=== PATIENT | female | born 1940 | race African-American/Black ===

== ENCOUNTER 2020-04-06 20:58 | Emergency (ER) | payer OTHER ==
[~2020-04-06] VITALS: Ht 165.1 cm; Wt 72.7 kg
[2020-04-06] MEDS ORDERED: FAMOTIDINE 10 MG/ML 2 ML VIAL IVP ONE (22:15)
[2020-04-06] MEDS ORDERED: SODIUM CHLORIDE 0.9% 1,000 ML IV ONE (22:15)
[2020-04-06] MEDS ORDERED: MORPHINE SULFATE 2 MG/ML SYRINGE IVP ONE (22:15)
[2020-04-06] MEDS ORDERED: ONDANSETRON HCL 4 MG TABLET PO ONE (22:15)
[2020-04-06] MEDS ORDERED: SODIUM CHLORIDE 0.9% 100 ML ONE (23:12)
[2020-04-06] MEDS ORDERED: IOVERSOL 350 MG/ML 100 ML VIAL ONE (23:12)
[2020-04-06 23:14] LABS: BASOPHILS % (AUTO) 0.1 % (0.0-2.0); EOSINOPHILS % (AUTO) 0 % (1.0-6.0); HEMATOCRIT 35.3 % (36-46); HEMOGLOBIN 11.5 g/dL (12.0-16.0); LYMPHOCYTES # (AUTO) 0.6 K/uL (1.0-4.8); LYMPHOCYTES % (AUTO) 6.5 % (22.0-44.0); MEAN CORPUSCULAR HEMOGLOBIN 27.8 pg (26.0-34.0); MEAN CORPUSCULAR HGB CONC 32.7 G/dL (31.0-37.0); MEAN CORPUSCULAR VOLUME 85 fL (80-100); MONOCYTES # (AUTO) 0.9 K/uL (0.1-1.0); MONOCYTES % (AUTO) 9.4 % (2.0-9.0); NEUTROPHILS # (AUTO) 7.8 K/uL (1.8-7.7); PLATELET COUNT (AUTO) 180 K/uL (150-450); RED BLOOD CELL COUNT(AUTO) 4.16 MIL/uL (4.00-5.20); RED CELL DISTRIBUTION WIDTH 14.6 % (11.5-14.5)
[2020-04-06 23:24] LABS: ANION GAP 11 mmol/L (8-16); CALCIUM, TOTAL 7.7 mg/dL (8.8-10.5); CARBON DIOXIDE 21 mmol/L (22-29); CHLORIDE 104 mmol/L (98-107); CREATININE 0.72 mg/dL (0.60-1.30); GLOMERULAR FILTR. RATE CALC > 60 mL/min (>60); GLUCOSE,RANDOM 124 mg/dL (70-110); POTASSIUM 3.4 mmol/L (3.5-5.1); SODIUM SERUM 136 mmol/L (136-145); UREA NITROGEN, BLOOD 12 mg/dL (7-18)
[2020-04-06 23:29] LABS: ALANINE AMINOTRANSFERASE 26 U/L (12-78); ALBUMIN 2.2 g/dL (3.4-5.0); ALKALINE PHOSPHATASE 51 U/L (46-116); ASPARTATE AMINOTRANSFERASE 33 U/L (15-37); BILIRUBIN,TOTAL 0.7 mg/dL (0.1-1.0); LIPASE 134 U/L (73-393); TOTAL PROTEIN, SERUM 6.6 g/dL (6.4-8.2)
[2020-04-07 01:45] LABS: COVID AG,FIA SOURCE NASOPHARYNGEAL
[2020-04-07] MEDS ORDERED: MORPHINE SULFATE 2 MG/ML SYRINGE IVP ONE (01:45)
[2020-04-07] MEDS ORDERED: PB/HYOSCY/ATR/SCOP/LIDO/MAALOX 55 ML BOTTLE PO ONE (01:45)
[2020-04-07] MEDS ORDERED: POTASSIUM CHLORIDE 20 MEQ ER TABLET PO ONE (01:45)
[2020-04-07 01:53] LABS: APPEARANCE,URINE CLEAR (CLEAR); BILIRUBIN,URINE NEGATIVE (NEGATIVE); GLUCOSE, URINE (UA) NEGATIVE (NEGATIVE); KETONES,URINE 15 mg/dL (NEGATIVE); LEUKOCYTE ESTERASE ,URINE NEGATIVE (NEGATIVE); NITRATE,URINE NEGATIVE (NEGATIVE); OCCULT BLOOD,URINE TRACE (NEGATIVE); PROTEIN,URINE NEGATIVE (NEGATIVE); UROBILINOGEN,URINE 0.2 mg/dL (<=1.0)
[2020-04-07] MEDS ORDERED: PANTOPRAZOLE SODIUM 40 MG/VIAL IVP ONE (02:00)
[2020-04-07 02:03] LABS: BACTERIA,URINE Rare /HPF (None Seen); SQUAMOUS EPITHELIAL CELL,UR Few /LPF (None Seen); WBC,URINE 0-2 /HPF (0-5)
[2020-04-07] MEDS ORDERED: DiphenhydrAMINE HCL 50 MG/ML VIAL IVP STA (02:03)
[2020-04-07] MEDS ORDERED: METOCLOPRAMIDE HCL 5 MG/ML 2 ML VIAL IVP ONE (02:15)
[2020-04-07] MEDS ORDERED: LEVOFLOXACIN 750 MG/D5% WATER 150 ML IV ONE (02:30)
[2020-04-07] MEDS ORDERED: CefTRIAXone 1 GM/DEXTROSE 50 ML IV ONE (02:30)
[2020-04-07] MEDS ORDERED: ONDANSETRON HCL 4 MG/2 ML VIAL IVP PRN ×2 (02:30→02:45)
[2020-04-07] MEDS ORDERED: PROCHLORPERAZINE MALEATE 25 MG RECTAL SUPPOSITORY PR ONE (02:30)
[2020-04-07] MEDS ORDERED: ACETAMINOPHEN 325 MG TABLET PO PRN (02:45)
[2020-04-07] MEDS ORDERED: RINGERS SOLUTION,LACTATED 1,000 ML IV ONE (02:45)
[2020-04-07 06:38] VITALS: BP 111/68
[2020-04-07] MEDS ORDERED: DEXAMETHASONE SOD PHOS 4 MG/ML VIAL IVP SCH (09:00)
== END 2020-04-07 06:39 | disposition home or self-care (01) ==
LOC: EMS 20:58 → UNDOADMIN 04-07 02:28 → 6N 04-07 02:28
DX: U07.1 COVID-19 (principal); J12.82 Pneumonia due to coronavirus disease 2019; E87.6 Hypokalemia; R10.13 Epigastric pain; R11.10 Vomiting, unspecified
CPT/HCPCS: 36415; 71045; 71250; 74177; 80053; 81001; 83690; 84484; 85025; 87426; 93005; 96361; 96365; 96366; 96367; 96375 ×2; 96376; 99285; C9113; J0696; J1200; J1956; J2270 ×2; J2765; J3490; J7030; J7050; Q0162; Q9967

== ENCOUNTER 2021-06-30 18:13 | Emergency (ER) | payer OTHER ==
[~2021-06-30] VITALS: Ht 167.6 cm; Wt 79.5 kg
[2021-06-30 18:37] VITALS: BP 135/68
[2021-06-30] MEDS ORDERED: IBUP-1506 PO (19:57)
[2021-06-30] MEDS ORDERED: KETOROLAC TROMETHAMINE 30 MG/ML VIAL IM ONE (20:00)
[2021-06-30] MEDS ORDERED: OMEP40CA21 PO (20:01)
[2021-06-30] MEDS ORDERED: MELO-106 PO (20:01)
[2021-06-30] MEDS ORDERED: CHOL25TA4 PO (20:01)
== END 2021-06-30 20:37 | disposition home or self-care (01) ==
LOC: EMS 18:13
DX: M79.645 Pain in left finger(s) (principal); R60.0 Localized edema
CPT/HCPCS: 29130; 73140; 96372; 99283; J1885

== ENCOUNTER 2022-08-15 11:04 | Emergency (ER) | payer OTHER ==
[~2022-08-15] VITALS: Ht 170.2 cm; Wt 72.3 kg
[~2022-08-15 11:04] MED LIST: CHOL25TA4 PO; IBUP-1506 PO; MELO-106 PO; OMEP40CA21 PO
[2022-08-15] MEDS ORDERED: UNK ABX PO (11:21)
[2022-08-15 13:10] VITALS: BP 139/58; PULSE 66; RESP 18; TEMP 98.2
[2022-08-15] MEDS ORDERED: AZITHROMYCIN 500 MG/NS 250 ML IV ONE (15:45)
[2022-08-15] MEDS ORDERED: CefTRIAXone 1 GM/DEXTROSE 50 ML IV ONE (15:45)
[2022-08-15] MEDS ORDERED: SODIUM CHLORIDE 0.9% 0 ML ONE (16:43)
[2022-08-15] MEDS ORDERED: IOHEXOL 350 MG/ML 100 ML VIAL ONE (16:43)
[2022-08-15] MEDS ORDERED: ASPI81TA87 PO (16:45)
== END 2022-08-15 16:58 | disposition left against medical advice (07) ==
LOC: EMS 11:04
DX: T15.12XA Foreign body in conjunctival sac, left eye, initial encounter (principal); G45.9 Transient cerebral ischemic attack, unspecified
CPT/HCPCS: 65205; 70450; 93005; 99284; J7050; Q9967